=== PATIENT | female | born 1990 | race Caucasian/White ===

== ENCOUNTER 2018-01-26 20:32 | Emergency (ER) | payer MEDICAID ==
[~2018-01-26] VITALS: Ht 160 cm; Wt 67.9 kg
[2018-01-26 20:34] VITALS: BP 120/78
[2018-01-26] MEDS ORDERED: DEXAMETHASONE 4 MG TABLET ONE (21:13)
[2018-01-26] MEDS ORDERED: DEXAMETHASONE 4 MG TABLET PO ONE (21:30)
== END 2018-01-26 22:11 | disposition home or self-care (01) ==
LOC: ED 22:10
DX: J02.9 Acute pharyngitis, unspecified (principal)
CPT/HCPCS: 87081; 87880; 99284

== ENCOUNTER 2018-04-12 10:04 | Emergency (ER) | payer MEDICAID ==
[~2018-04-12] VITALS: Ht 160 cm; Wt 69.2 kg
[2018-04-12 10:06] VITALS: BP 136/84
[2018-04-12] MEDS ORDERED: OXYcodone/APAP 5/325MG TABLET PO ONE (10:30)
[2018-04-12] MEDS ORDERED: OXYcodone/APAP 5/325MG TABLET ONE (10:44)
== END 2018-04-12 12:22 | disposition home or self-care (01) ==
LOC: ED 11:45
DX: S82.201A Unspecified fracture of shaft of right tibia, initial encounter for closed fracture (principal); S73.101A Unspecified sprain of right hip, initial encounter; S93.401A Sprain of unspecified ligament of right ankle, initial encounter; W19.XXXA Unspecified fall, initial encounter; Y93.89 Activity, other specified; Y99.8 Other external cause status; Y92.410 Unspecified street and highway as the place of occurrence of the external cause
CPT/HCPCS: 99284